=== PATIENT | female | born 1945 | race Caucasian/White ===

== ENCOUNTER → 2017-06-21 | Outpatient (REF) | payer MEDICARE, BC ==
[~2017-06-21] MED LIST: ACET500T68 PO; ALE70 PO; ALP25 PO; ALPR-459 PO; ARGI1POW PO; ASCO250T86 PO; ASP300S PO; ASPI-1441 PO; ASPI-1471 PO; ASPI-715 PO; ASPI81TA94 PO; ATOR20TA22 PO; ATOR40TA24 PO; ATR80PT PO; BET25 PO; BIS10S PR; CALC-1062 PO; CALC-901 PO; CEP500 PO; CEPH-13 PO; CHOL100059 PO; CHOL200021 PO; CRAN1POW PO; CRAN200C5 PO; CRAN450C PO; CRANBERRY; CYCL10TA29 PO; DAR100 PO; DOCU-416 PO; DOCU100T19 PO; FAM20 PO; FESO8PT PO; FESO8TAB3 PO; FISH OIL 1,2001 CAP PO; FISH OIL1 CAP PO; GLUC-255 PO; GLUC1TAB13 PO; GLUC1TAB2 PO; HCTZ25 PO; HYDR-2966 PO; IBU600 PO; LEVO-85 PO; LEVO50TA80 PO; LIS10 PO; LISI-346 PO; LISI30TA46 PO; LISI5TAB25 PO; LOR5 PO; LOR5/325 PO; LOR7.5/325 PO; MERIPEX PO; METH1TAB58 PO; METO-235 PO; METO1TAB PO; MOM PO; MULT-1 PO; MULT-770 PO; MUSCLE RELAXANT; NITR-1 PO; NITR-105 PO; NITR-57 PO; OLME40TA28 PO; OMEP-137 PO; OMEP-153 PO; OMEP40CA48 PO; ONDA8TAB98 PO; OSTEO BIFLEX; OXY10 PO; OXYC-378 PO; OXYC-865 PO; OXYC1TAB54 GT; PAN20 PO; PANT20TA27 PO; PHEN200T32 PO; PHENA200 PO; POLY17PO25 PO; POTA99TA10 PO; POTA99TA13 PO; PRAM0.5T27 PO; RAL60 PO; STOOL SOFTNER PO; TAMS0.4C25 PO; TIZ4 PO; TOLT4CAP13 PO; TRA50 PO; [UNRECOGNIZED DRUG - CODE] NG; [UNRECOGNIZED DRUG - CODE] PO; [UNRECOGNIZED DRUG - CODE] PO
== END ==
LOC: ZZSENDIN 13:17
PROVIDERS: ATTEND Urology
DX: N39.0 Urinary tract infection, site not specified (principal); B95.4 Other streptococcus as the cause of diseases classified elsewhere
CPT/HCPCS: 87077; 87088

== ENCOUNTER → 2017-07-19 | Outpatient (REF) | payer MEDICARE, BC | LOC: ZZSENDIN 17:26 | PROVIDERS: ATTEND Urology | DX: N39.0 Urinary tract infection, site not specified (principal) | CPT/HCPCS: 87088 ==

== ENCOUNTER → 2017-09-08 | Outpatient (CLI) | payer MEDICARE, BC ==
[~2017-09-08] MED LIST changes: +REGADENOSON 0.4 MG/5 ML SYR ONE
--- NOTE | 2017-09-08 14:35 | RT STRESS TEST REPORT ---
[facility] PATIENT NAME: MARGARITA SALDIVAR : [id number] MR: [id number] V: [id number] EXAM DATE: ORDERING PHYSICIAN: RIVERA TINEO TECHNOLOGIST: Elle Acquisition Time: 2017-09-08 14:16:05 Total Exercise Time: 00:01:00 Test Indications: Dyspnea Medications: see nuclear med sheet Protocol: LEXISCAN Max HR: 086 BPM 58% of Pred: 146 BPM Max BP: 154/092 mmHG Max Work Load: 1.0 METS Stress was performed using Lexiscan Protocol. She experienced some mild lightheadedness with the infu steph. This resolved very quickly. No EKG changes were noted. No dysrhythmias were noted. Await Myoview images. Confirmed by GIRMA MANN ([id number]) on 09/08/2017 2:34:50 PM Referred By: Overread By: GIRMA MANN
--- NOTE | 2017-09-09 12:06 | RADIOLOGY IMAGING REPORT ---
FACILITY: [facility] PATIENT NAME: Karla Grady : 1945 MR: [id number] V: [id number] EXAM DATE: ORDERING PHYSICIAN: RIVERA TINEO TECHNOLOGIST: Location: [facility] Patient: Karla Grady : 1945 Visit/Account:[id number] Date of Sevice: 09/08/2017 EXAMINATION: Single isotope SPECT imaging with regadenoson infusion and gated SPECT imaging. DATE OF EXAMINATION: 09/08/17. DATE OF INTERPRETATION: 09/08/17. REQUESTING PHYSICIAN: RIVERA TINEO. INDICATION: The patient is a 72-year-old female evaluated for dyspnea. PROCEDURE: After informed consent the patient received an intravenous injection of 12.3 mCi of Tc-99 m sestamibi followed at an appropriate time interval by rest imaging. The patient then subsequently received an intravenous infusion of 0.4 mg of regadenoson per protocol without complication. Resting heart rate was 72 bpm with a peak heart rate of 83 bpm. Blood pressure at rest was 137 / 76 and fol lowing infusion was 147 / 91. Baseline EKG demonstrates SR. There were no diagnostic EKG changes of ischemia following infusion. Symptoms were nonspecific. The patient then received an intravenous i njection of 29.2 mCi of Tc-99m sestamibi followed by stress imaging. RAW DATA: Examination of the summed raw data revealed a fair quality study. MYOCARDIAL PERFUSION: The tomographic images demonstrate normal perfusion rest & stress. GATED IMAGES: The gated images demonstrate normal regional wall motion and thickening; LVEF 70%. IMPRESSION: 1. Nondiagnostic Lexiscan stress ECG 2. Normal myocardial perfusion scan.` 3. Normal LV systolic function; LVEF 70%. 4. Based on the results of this exam, the patient appears to be at low risk for near term future card iovascular events. Report Dictated By: Adarsh Doyle MD at 09/09/2017 11:58 AM Report E-Signed By: Adarsh Doyle MD at 09/09/2017 12:02 PM WSN:[id number]
== END ==
LOC: RAD 02:04
PROVIDERS: ATTEND Nurse Practitioner Family
DX: R06.00 Dyspnea, unspecified (principal)
CPT/HCPCS: 78452; 93017; A9500; J2785

== ENCOUNTER 2017-11-24 20:15 | Emergency (ER) | payer MEDICARE, BC ==
[~2017-11-24 20:15] MED LIST changes: -ARGI1POW; -GRIS500T PO
--- NOTE | 2017-11-24 20:22 | ER Report ---
History and Physical Time Seen By MD: 20:16 HPI/ROS CHIEF COMPLAINT: Fall HISTORY OF PRESENT ILLNESS: Patient is a 72-year-old female who resides at home with her grandson. Patient states she was attempting get into her walk and toe caught her foot and tripped and fell. She did strike her head on the back of a dresser drawer knob. There is an abrasion to the vertex of the scalp. She is mostly complaining about pain to the right foot lateral aspect as well as right ankle. She has had a prior history of ankle injury with fracture and ORIF. He had no loss of consciousness she denies any headache or neck pain. She denies any numbness or tingling to any of the extremities. She denies chest pain or shortness of breath either prior to during or after the fall. She denies abdominal pain. She denies any acute hip or pelvic pain. She does live at home and ambulates with a 4. walker normally. REVIEW OF SYSTEMS: Constitutional: No fever, no chills. Eyes: No discharge. ENT: No sore throat. Cardiovascular: No chest pain, no palpitations. Respiratory: No cough, no shortness of breath. Gastrointestinal: No abdominal pain, no vomiting. Genitourinary: No hematuria. Musculoskeletal: No back pain. Right foot and ankle pain Skin: No rashes. Neurological: No headache. Allergies: Coded Allergies: morphine (Verified Adverse Reaction, Severe, GI DISTRESS, SEVERE NAUSEA/ VOMITING, 10/12/17) UPDATED 10/12/2017 Sulfa (Sulfonamide Antibiotics) (Verified Adverse Reaction, Intermediate, NAUSEA/VOMITING, 10/12/17) UPDATED 10/12/2017 Home Meds Active Scripts Oxycodone Hcl/Acetaminophen (PERCOCET 5-325 MG TABLET) 1 Each Tablet, 1 EACH PO Q6H for PAIN, #15 TAB 0 Refills Prov:BRODERICK GUTIERREZ MD 11/24/17 Reported Medications Arginine/Ascorbate Sod/Megan AC (Arginaid Powder) 1 Each Powd.pack, PACK 11/24/17 Meloxicam (MELOXICAM) 7.5 Mg Tablet, 7.5 MG PO BID 11/24/17 Griseofulvin,Microsize (GRISEOFULVIN) 500 Mg Tablet, 500 MG PO QDAY 11/24/17 Amlodipine Besylate (AMLODIPINE BESYLATE) 5 Mg Tablet, 2.5 MG PO QDAY, TAB 10/12/17 Sucralfate (SUCRALFATE) 1 Gm Tablet, 1 GM PO PRN 10/12/17 Ondansetron (ZOFRAN ODT) 4 Mg Tab.rapdis, 1 TAB PO PRN for NAUSEA, TAB.NAZIA 10/12/17 Mirabegron (MYRBETRIQ) 50 Mg Tab.er.24h, 1 TAB PO QDAY 10/12/17 Tramadol Hcl (TRAMADOL HCL) 50 Mg Tablet, 1 TAB PO Q6H for PAIN, TAB 10/12/17 Denosumab (PROLIA) 60 Mg/1 Ml Injs, 1 DIS.SYR SUBQ [id number] 10/12/17 Calcium Carbonate (CALCIUM) 500 Mg Tablet, 1 TAB PO QDAY 10/12/17 Cranberry Extract (CRANBERRY) 200 Mg Capsule, 2 TAB PO QDAY, CAPSULE 10/12/17 Olmesartan Medoxomil (Olmesartan Medoxomil) 40 Mg Tablet, 1 TAB PEG QDAY 10/12/17 Levothyroxine Sodium (LEVOTHYROXINE SODIUM) 75 Mcg Tablet, 1 TAB PO QDAY, TAB 10/12/17 Fesoterodine Fumarate (TOVIAZ) 4 Mg Tabsr, 1 TAB PO QDAY 10/12/17 Docusate Sodium (Colace Clear) 50 Mg Capsule, 2 CAP PO QAY 10/12/17 Cholecalciferol (Vitamin D3) (VITAMIN D) 10,000 Unit Capsule, 1 CAP PO QAY, CAPSULE 10/12/17 Atorvastatin Calcium (ATORVASTATIN CALCIUM) 40 Mg Tablet, 1 TAB PO QDAY, TAB 10/12/17 Ascorbic Acid (VITAMIN C) Unknown Strength Tablet, PO DAILY 06/26/15 Alprazolam (ALPRAZOLAM) 0.25 Mg Tab.rapdis, 1 TAB PO PRN, #3 TAB 06/26/15 Pramipexole Di-Hcl (MIRAPEX) 0.5 Mg Tablet, 1 TAB PO QDAY 07/24/13 Metoprolol/Hydrochlorothiazide (METOPROLOL-HCTZ 100-25 MG TAB) 1 Each Tablet, 1 TAB PO DAILY 07/24/13 Multivit,Ther Iron,Ca,Fa & Min (THERA-M CAPLET) 1 Each Tablet, 1 CAP PO QDAY 07/24/13 Aspirin (ASPIR 81) 81 Mg Tablet.dr, 1 TAB PO QAM, TAB 07/24/13 Discontinued Reported Medications Meloxicam (MELOXICAM) 7.5 Mg Tablet, 1 TAB PO QDAY 10/12/17 Arginine/Ascorbate Sod/Megan AC (Arginaid Powder) 1 Each Powd.pack, 2-3 PACK PO QWEEK 06/26/15 Past Medical/Surgical History Past medical history for stroke in 1974. History of glaucoma left eye. History of hyperlipidemia, and hypertension. History of right ankle fracture 2000, history of right femur fracture 2013. History of osteoarthritis to her left knee , left shoulder and left spine. History of hypothyroidism. History of cholecystectomy, history of bladder surgery history of total left shoulder in 2013 Hx Smoking: No Smoking Status: Never Smoker Exposure to Second Hand Smoke?: No Hx Substance Use Disorder: No Hx Alcohol Use: No Constitutional Vital Sign - Last 24 Hours 11/24/17 11/24/17 11/24/17 11/24/17 20:16 20:17 20:30 21:30 Temp 97.7 Pulse 80 75 80 Resp 16 15 19 B/P (MAP) 131/77 131/77 (95) 148/75 (99) 147/71 (96) Pulse Ox 93 O2 Delivery Room Air 11/24/17 11/24/17 11/24/17 21:45 22:00 22:22 Pulse 70 77 84 Resp 24 28 16 B/P (MAP) 143/69 (93) 150/79 (102) Pulse Ox 89 94 O2 Delivery Room Air Physical Exam General/Constitutional: Patient is awake, alert, nontoxic and in no acute respiratory distress. Elevated body mass index Head: Patient has a primary 3 inch abrasion to the vertex of the scalp there is approximately an area of 0.5 cm that is somewhat open and will require primary repair. Eyes: Conjunctival clear, Pupils are equal and reactive to light. Extraocular muscles are intact and symmetrical. Sclera are clear and anicteric. The patient has left eyelid( Ears:External canals are clear. Tympanic membranes are clear with normal landmarks and light reflex. No hemotympanum Nares: No rhinorrhea or bleeding. Turbinates are pink and moist. Oropharyngeal: Mucous membranes are moist. There is no pharyngeal erythema or exudate. There are no palatal petechiae. Uvula is midline and symmetrical. Neck: Supple, no adenopathy. No midline C-spine tenderness. Cardiovascular: Heart is regular rate and rhythm without audible murmurs, rubs or gallops. Pulmonary: Lungs are clear to auscultation bilaterally. There are no wheezes, rales, or rhonchi. Chest rise is symmetrical Abdomen: Soft, nontender, no guarding or peritoneal signs. Extremities: No gross deformities, No peripheral cyanosis. Able to move all 4 extremities. Patient with tenderness to the lateral aspect of the right foot and right ankle. Neuro: Alert and oriented X3, Cranial nerves 2 thru 12 are intact and symmetrical. Skin: No rashes, skin is warm dry and well perfused. Medical Decision Making EKG/Imaging Imaging FACILITY: [facility] PATIENT NAME: Karla Grady : 1945 MR: [id number] V: [id number] EXAM DATE: ORDERING PHYSICIAN: BRODERICK GUTIERREZ TECHNOLOGIST: Location: [facility] Patient: Karla Grady : 1945 Visit/Account:[id number] Date of Sevice: 11/24/2017 EXAMINATION: CT Head Without Contrast 11/24/2017 8:22 PM HISTORY: Trauma. Fell in shower. Cut on back of head. TECHNIQUE: Contiguous axial images were obtained from the skull base to the vertex without intravenous contrast. One of the following dose optimization techniques was utilized in the performance of this exam: Automated exposure control; adjustment of the mA and/ or kV according to the patient's size; or use of an iterative reconstruction technique. Specific details can be referenced in the facility's radiology CT exam operational policy. COMPARISON STUDIES: none. FINDINGS: Ventricles / sulci / fissures: negative Masses / hemorrhage / midline shift: negative White matter: Minimal white matter hypodensities, well within normal range for age. Patel-white differentiation: negative Extra-axial spaces: negative Dural venous sinuses / arterial structures: negative Skull base / calvarium: No acute bony injury. Soft tissue injury to the right of midline over the parietal occipital scalp. No foreign body. Visualized mastoid air cells / paranasal sinuses: negative IMPRESSION: 1. Scalp injury to the right of midline in the parietal occipital area. No skull fracture or acute intracranial injury evident. 2. Age-appropriate intracranial appearance. No evidence of mass, stroke, or hemorrhage. Report Dictated By: Kunal Patiño MD at 11/24/2017 9:12 PM Report E-Signed By: Kunal Patiño MD at 11/24/2017 9:18 PM WSN:[id number] FACILITY: [facility] PATIENT NAME: Karla Grady : 1945 MR: [id number] V: [id number] EXAM DATE: ORDERING PHYSICIAN: BRODERICK GUTIERREZ TECHNOLOGIST: Location: [facility] Patient: Karla Grady : 1945 Visit/Account:[id number] Date of Sevice: 11/24/2017 EXAMINATION: Right knee, 3 views 11/24/2017 8:55 PM HISTORY: trauma COMPARISON: None FINDINGS: Intramedullary xiao with distal screws from previous femoral ORIF. No loosening or disruption of the visualized metallic fixation. Osteoarthritic changes with tricompartmental spurring and more prominent lateral femorotibial joint space narrowing. Small suprapatellar effusion. No acute bony injury. IMPRESSION: 1. No acute bony injury. 2. Moderate osteoarthritis. Small effusion. Report Dictated By: Kunal Patiño MD at 11/24/2017 9:37 PM Report E-Signed By: Kunal Patiño MD at 11/24/2017 9:39 PM WSN:[id number] FACILITY: [facility] PATIENT NAME: Karla Grady : 1945 MR: [id number] V: [id number] EXAM DATE: ORDERING PHYSICIAN: BRODERICK GUTIERREZ TECHNOLOGIST: Location: [facility] Patient: Karla Grady : 1945 Visit/Account:[id number] Date of Sevice: 11/24/2017 EXAMINATION: Right ankle, 3 views Right foot, 3 views 11/24/2017 8:22 PM HISTORY: trauma COMPARISON: Right ankle 09/13/2009 FINDINGS: Osteopenia. Stable chronic ossification center at the tip of the medial malleolus. No acute bony fracture is evident. Stable chronic dorsal spurring in the distal talus. Partially displaced and mildly delayed fractures of the neck of the third metatarsal with milder nondisplaced fracture in the neck of the second. MTP articulations are not disrupted. No other acute bony injury. IMPRESSION: 1. Fractures through the necks of the right second and third metatarsals. 2. No acute bony injury in the ankle. Report Dictated By: Kunal Patiño MD at 11/24/2017 9:34 PM Report E-Signed By: Kunal Patiño MD at 11/24/2017 9:37 PM WSN:[id number] FACILITY: [facility] PATIENT NAME: Karla Grady : 1945 MR: [id number] V: [id number] EXAM DATE: ORDERING PHYSICIAN: BRODERICK GUTIERREZ TECHNOLOGIST: Location: [facility] Patient: Karla Grady : 1945 Visit/Account:[id number] Date of Sevice: 11/24/2017 EXAMINATION: Right ankle, 3 views Right foot, 3 views 11/24/2017 8:22 PM HISTORY: trauma COMPARISON: Right ankle 09/13/2009 FINDINGS: Osteopenia. Stable chronic ossification center at the tip of the medial malleolus. No acute bony fracture is evident. Stable chronic dorsal spurring in the distal talus. Partially displaced and mildly delayed fractures of the neck of the third metatarsal with milder nondisplaced fracture in the neck of the second. MTP articulations are not disrupted. No other acute bony injury. IMPRESSION: 1. Fractures through the necks of the right second and third metatarsals. 2. No acute bony injury in the ankle. Report Dictated By: Kunal Patiño MD at 11/24/2017 9:34 PM Report E-Signed By: Kunal Patiño MD at 11/24/2017 9:37 PM WSN:[id number] ED Course/Re-evaluation ED Course 11/24/2017 8:31:11 pm when at this time will be to perform CT scan of the head given the head injury. We'll also x-ray of the right ankle and right foot. We' ll update the patient's tetanus status. We will also perform primary. The laceration to the scalp. Procedure: Laceration repair. Verbal consent was obtained from the patient. The 1 cm laceration on the scalp was anesthetized in the usual fashion. The wound was cleansed, draped and explored to its base with a gloved finger. There were no deep structures involved. The wound was repaired with 2 joanie. The wound repair was simple. The procedure was performed by myself. Decision to Disposition Date: Nov 24, 2017 Decision to Disposition Time: 21:55 Depart Departure Latest Vital Signs Vital Signs Date Time Temp Pulse Resp B/P (MAP) Pulse Ox O2 Delivery O2 Flow Rate FiO2 11/24/17 22:22 84 16 150/79 (102) 94 Room Air 11/24/17 20:16 97.7 Impression: Primary Impression: Fracture of foot Condition: Improved Disposition: HOME OR SELF-CARE Referrals: LUGII GARCÍA MD (PCP) 2 Days GURJIT FRANCIS MD Call to schedule a follow-up appointment for reevaluation of your foot fracture within 7 days New Scripts Oxycodone Hcl/Acetaminophen (PERCOCET 5-325 MG TABLET) 1 Each Tablet 1 EACH PO Q6H for PAIN, #15 TAB 0 Refills Prov: BRODERICK GUTIERREZ MD 11/24/17 Patient Instructions: Foot Fracture in Adults (DC) Additional Instructions: Follow-up with [facility] in the next 7 days for evaluation of your foot fracture Wear your cast shoe while ambulating until evaluated by orthopedics. Problem Qualifiers Primary Impression: Fracture of foot Encounter type: initial encounter Fracture type: closed Laterality: right Qualified Codes: S92.901A - Unspecified fracture of right foot, initial encounter for closed fracture BRODERICK GUTIERREZ MD Nov 24, 2017 20:22
[2017-11-24] MEDS ORDERED: GRIS500T PO (20:25)
[2017-11-24] MEDS ORDERED: DIPHTH/TETANUS/ACEL. PERTUSSIS IM ONLY ONE (20:25)
[2017-11-24] MEDS ORDERED: TETRACAIN/EPI/LIDO GEL 3ML SYR TP ONE (20:25)
--- NOTE | 2017-11-24 21:22 | RADIOLOGY IMAGING REPORT ---
FACILITY: [facility] [place] PATIENT NAME: Karla Grady : 1945 MR: [id number] V: [id number] EXAM DATE: ORDERING PHYSICIAN: BRODERICK GUTIERREZ TECHNOLOGIST: Location: Patient: Karla Grady : 1945 Visit/Account:[id number] Date of Sevice: 11/24/2017 EXAMINATION: CT Head Without Contrast 11/24/2017 8:22 PM HISTORY: Trauma. Fell in shower. Cut on back of head. TECHNIQUE: Contiguous axial images were obtained from the skull base to the vertex without intraven ous contrast. One of the following dose optimization techniques was utilized in the performance of this exam: Autom ated exposure control; adjustment of the mA and/or kV according to the patient's size; or use of an i terative reconstruction technique. Specific details can be referenced in the facility's radiology C T exam operational policy. COMPARISON STUDIES: none. FINDINGS: Ventricles / sulci / fissures: negative Masses / hemorrhage / midline shift: negative White matter: Minimal white matter hypodensities, well within normal range for age. Patel-white differentiation: negative Extra-axial spaces: negative Dural venous sinuses / arterial structures: negative Skull base / calvarium: No acute bony injury. Soft tissue injury to the right of midline over the par ietal occipital scalp. No foreign body. Visualized mastoid air cells / paranasal sinuses: negative IMPRESSION: 1. Scalp injury to the right of midline in the parietal occipital area. No skull fracture or acute in tracranial injury evident. 2. Age-appropriate intracranial appearance. No evidence of mass, stroke, or hemorrhage. Report Dictated By: Kunal Patiño MD at 11/24/2017 9:12 PM Report E-Signed By: Kunal Patiño MD at 11/24/2017 9:18 PM WSN:[id number]
[2017-11-24] MEDS ORDERED: MELO-205 PO (21:37)
[2017-11-24] MEDS ORDERED: ARGI1POW (21:37)
--- NOTE | 2017-11-24 21:41 | RADIOLOGY IMAGING REPORT ---
[place] [facility] [place]IENT NAME: Karla Grady : 1945 MR: [id number] V: [id number] EXAM DATE: ORDERING PHYSICIAN: BRODERICK GUTIERREZ TECHNOLOGIST: Location: [facility] [place] Patient: Karla Grady : 1945 Visit/Account:[id number] Date of Sevice: 11/24/2017 EXAMINATION: Right ankle, 3 views Right foot, 3 views 11/24/2017 8:22 PM HISTORY: trauma COMPARISON: Right ankle 09/13/2009 FINDINGS: Osteopenia. Stable chronic ossification center at the tip of the medial malleolus. No acute bony fracture is evident. Stable chronic dorsal spurring in the distal talus. Partially displaced an d mildly delayed fractures of the neck of the third metatarsal with milder nondisplaced fracture in t he neck of the second. MTP articulations are not disrupted. No other acute bony injury. IMPRESSION: 1. Fractures through the necks of the right second and third metatarsals. 2. No acute bony injury in the ankle. Report Dictated By: Kunal Patiño MD at 11/24/2017 9:34 PM Report E-Signed By: Kunal Patiño MD at 11/24/2017 9:37 PM WSN:[id number]
--- NOTE | 2017-11-24 21:42 | RADIOLOGY IMAGING REPORT ---
FACILITY: [facility] [place] PATIENT NAME: Karla Grady : 1945 MR: [id number] V: [id number] EXAM DATE: ORDERING PHYSICIAN: BRODERICK GUTIERREZ TECHNOLOGIST: [place] [facility] [place]: Karla Grady : 1945 Visit/Account:[id number] Date of Sevice: 11/24/2017 EXAMINATION: Right ankle, 3 views Right foot, 3 views 11/24/2017 8:22 PM HISTORY: trauma COMPARISON: Right ankle 09/13/2009 FINDINGS: Osteopenia. Stable chronic ossification center at the tip of the medial malleolus. No acute bony fracture is evident. Stable chronic dorsal spurring in the distal talus. Partially displaced an d mildly delayed fractures of the neck of the third metatarsal with milder nondisplaced fracture in t he neck of the second. MTP articulations are not disrupted. No other acute bony injury. IMPRESSION: 1. Fractures through the necks of the right second and third metatarsals. 2. No acute bony injury in the ankle. Report Dictated By: Kunal Patiño MD at 11/24/2017 9:34 PM Report E-Signed By: Kunal Patiño MD at 11/24/2017 9:37 PM WSN:[id number]
--- NOTE | 2017-11-24 21:43 | RADIOLOGY IMAGING REPORT ---
FACILITY: [facility] [place] PATIENT NAME: Karla Grady : 1945 MR: [id number] V: [id number] EXAM DATE: ORDERING PHYSICIAN: BRODERICK GUTIERREZ [place]CHN[place]IST: [place] [facility] [place] : 1945 Visit/Account:[id number] Date of Sevice: 11/24/2017 EXAMINATION: Right knee, 3 views 11/24/2017 8:55 PM HISTORY: trauma COMPARISON: None FINDINGS: Intramedullary xiao with distal screws from previous femoral ORIF. No loosening or disrupti on of the visualized metallic fixation. Osteoarthritic changes with tricompartmental spurring and mor e prominent lateral femorotibial joint space narrowing. Small suprapatellar effusion. No acute bony i njury. IMPRESSION: 1. No acute bony injury. 2. Moderate osteoarthritis. Small effusion. Report Dictated By: Kunal Patiño MD at 11/24/2017 9:37 PM Report E-Signed By: Kunal Patiño MD at 11/24/2017 9:39 PM WSN:[id number]
[2017-11-24] MEDS ORDERED: OXYC-865 PO (21:53)
[2017-11-24] MEDS ORDERED: oxyCODONE/ACETAMIN 5/325MG TH 2 TAB/BOTTLE PO ONE (21:55)
[2017-11-24 22:22] VITALS: BP 150/79
== END 2017-11-24 22:31 | disposition home or self-care (01) ==
LOC: ER 20:29
DX: S92.321A Displaced fracture of second metatarsal bone, right foot, initial encounter for closed fracture (principal); S92.331A Displaced fracture of third metatarsal bone, right foot, initial encounter for closed fracture; S01.01XA Laceration without foreign body of scalp, initial encounter; W01.10XA Fall on same level from slipping, tripping and stumbling with subsequent striking against unspecified object, initial encounter
CPT/HCPCS: 12001; 70450; 73562; 73610; 73630; 90471; 90715; 99284; A9270

== ENCOUNTER → 2017-11-24 | Outpatient (CLI) | payer MEDICARE, BC ==
[~2017-11-24] MED LIST changes: +AMLO-96 PO; +ARGI1POW; +ATOR40TA69 PO; +CALC500T6 PO; +CHOL100062 PO; +DEN60I SUBQ; +DOCU50CA11 PO; +FES4PT PO; +GRIS500T PO; +LEVO75TA73 PO; +MELO-205 PO; +MIRA50TA PO; +OLME40TA3 PEG; +ONDA4TAB PO; -REGADENOSON 0.4 MG/5 ML SYR ONE; +SUCR1TAB51 PO; +TRAM-420 PO
== END ==
LOC: AMB 19:42
PROVIDERS: ATTEND Nurse Practitioner
DX: M79.671 Pain in right foot (principal); S00.01XA Abrasion of scalp, initial encounter; W01.190A Fall on same level from slipping, tripping and stumbling with subsequent striking against furniture, initial encounter
CPT/HCPCS: A0425; A0429

== ENCOUNTER → 2017-11-24 | Outpatient (CLI) | payer MEDICARE, BC | LOC: AMB 22:24 | PROVIDERS: ATTEND Nurse Practitioner | DX: S92.901A Unspecified fracture of right foot, initial encounter for closed fracture (principal) | CPT/HCPCS: A0425; A0428 ==

== ENCOUNTER → 2018-01-23 | Outpatient (CLI) | payer MEDICARE, BC ==
[~2018-01-23] MED LIST changes: +ARGI1POW; +GRIS500T PO
== END ==
LOC: LAB 14:42
PROVIDERS: ATTEND Urology
DX: N39.0 Urinary tract infection, site not specified (principal)
CPT/HCPCS: 81001; 87088

== ENCOUNTER → 2018-03-06 | Outpatient (REF) | payer MEDICARE, BC ==
[~2018-03-06] MED LIST changes: +AMLO-111 PO; -AMLO-96 PO
== END ==
LOC: ZZSENDIN 16:18
PROVIDERS: ATTEND Urology
DX: N39.0 Urinary tract infection, site not specified (principal)
CPT/HCPCS: 81001; 87088

== ENCOUNTER → 2018-03-09 | Outpatient (CLI) | payer MEDICARE, BC ==
--- NOTE | 2018-03-09 11:21 | EKG ---
FACILITY: [facility] [place] PATIENT NAME: MARGARITA SALDIVAR : [id number] MR: [id number] V: [id number] EXAM DATE: ORDERING PHYSICIAN: RANDOLPH DECKER TECHNOLOGIST: Test Reason : Blood Pressure : / mmHG Vent. Rate : 057 BPM Atrial Rate : 057 BPM P-R Int : 150 ms QRS Dur : 086 ms QT Int : 446 ms P-R-T Axes : 040 -01 036 degrees QTc Int : 434 ms Sinus bradycardia with occasional premature ventricular complexes Otherwise normal ECG Compared to previous it is relatively unchanged, but the PVC's are new. Confirmed by ERIN HALL ([id number]) on 03/09/2018 6:56:48 PM Referred By: Confirmed By:ERIN HALL
--- NOTE | 2018-03-09 11:49 | RADIOLOGY IMAGING REPORT ---
[place] [facility] [place] NAME: Karla Grady : 1945 MR: [id number] V: [id number] EXAM DATE: ORDERING PHYSICIAN: RANDOLPH DECKER TECHNOLOGIST: Location: Patient: Karla Grady : 1945 Visit/Account:[id number] Date of Sevice: 03/09/2018 Exam type: CHEST PA AND LAT History: Shortness of breath x2 weeks Comparison: February 04, 2016. Findings: Patient is markedly rotated towards the right. The lungs are free of acute effusions infiltrates or edema. There is no evidence of a pneumothorax or pneumomediastinum. The cardiac silhouette is enlar ged and there is moderate ectasia the thoracic aorta appearing similar to the prior study. There are moderate spondylotic changes of thoracic spine and left shoulder arthroplasty. Degenerative changes the right shoulder also noted IMPRESSION: 1. No acute cardiopulmonary process is seen Report Dictated By: Vickie Eaton MD at 03/09/2018 11:44 AM Report E-Signed By: Vickie Eaton MD at 03/09/2018 11:45 AM WSN:[id number]
== END ==
LOC: RAD 10:46
PROVIDERS: ATTEND Nurse Practitioner Family
DX: E03.9 Hypothyroidism, unspecified (principal); R00.1 Bradycardia, unspecified; I49.9 Cardiac arrhythmia, unspecified; E87.1 Hypo-osmolality and hyponatremia; I10 Essential (primary) hypertension; R68.89 Other general symptoms and signs; R06.00 Dyspnea, unspecified; E55.9 Vitamin D deficiency, unspecified
CPT/HCPCS: 36415; 71046; 82040; 82247; 82310; 82374; 82435; 82565; 82607; 82728; 82947; 84075; 84132; 84155; 84295; 84443; 84450; 84460; 84484; 84520; 85027; 93005

== ENCOUNTER → 2018-03-12 | Outpatient (CLI) | payer MEDICARE, BC | LOC: US 04:17 | PROVIDERS: ATTEND Nurse Practitioner Family | DX: I51.7 Cardiomegaly (principal) | CPT/HCPCS: 93306 ==

== ENCOUNTER → 2018-05-08 | Outpatient (CLI) | payer MEDICARE, BC ==
[~2018-05-08] MED LIST changes: +CYAN250013
--- NOTE | 2018-05-08 15:11 | RADIOLOGY IMAGING REPORT ---
FACILITY: [facility] [place] PATIENT NAME: Karla Grady : 1945 MR: [id number] V: [id number] EXAM DATE: ORDERING PHYSICIAN: RANDOLPH DECKER TECHNOLOGIST: Location: [facility] [place] Patient: Karla Grady : 1945 Visit/Account:[id number] Date of Sevice: 05/08/2018 DEXA Scan Clinical history: Osteoporosis, postmenopausal. Comparison: DEXA scan from 08/26/2015. LUMBAR SPINE: The bone mineral density (BMD) measured from L1-L4 correlates with a Z-score of 0.8 and a T-score of 0.2 which is Normal as defined by the World Health Organization. The corresponding risk of fracture in the lumbar spine is Not increased compared with a young adult reference population. This value mena s increase by 9.2 % since the prior study. More than 5% change is considered significant. HIP: Bone mineral density (BMD) measured in the LEFT total hip region correlates with a Z-score by 0.9 and a T-score of -1.8 which is osteopenia as defined by the World Health Organization. The correspondin g risk of fracture in the hip is 3-4 times increased compared to a young adult reference population. This value has decrease by 0.9 % since the prior study. More than 5% change is considered significan t. T score left femoral neck -1.7 Bone mineral density (BMD) measured in the Femoral Neck region measures 0.803 g/cm?. IMPRESSION: 1. Lumbar spine: Normal. There has been 9.2% increase in the bone mineral density since the previou s exam. 2. Left Total Hip: Osteopenia. There has been 0.9% decrease in the bone mineral density since the p revious exam. 3. Femoral Neck: Bone Mineral Density is 0.803 g/cm? The next DEXA scan of this patient should include the following sites: L1-L4 and the left hip. FRAX? WHO Fracture Risk Assessment Tool link: <http://www.shef.ac.uk/FRAX/tool.jsp?locationValue=9> PLEASE NOTE: 1) The World Health Organization defines low BMD as follows: T-score Normal > -1 Osteopenia < -1 and > -2.5 Osteoporosis < -2.5 without fractures Established osteoporosis < -2.5 with fractures 2) In general, you may wish to consider: Diagnosis Treatment Follow-up DEXA Normal BMD Prevention 2-3 years Osteopenia Prevention/therapy 1-2 years Osteoporosis Therapy Yearly 3) Fracture risk estimated from the T-score is more accurate for vertebral fractures (often spontane ous) than for hip fractures. Report Dictated By: Vickie Eaton MD at 05/08/2018 3:05 PM Report E-Signed By: Vickie Eaton MD at 05/08/2018 3:07 PM WSN:[email or web address]
== END ==
LOC: RAD 05-07 02:13
PROVIDERS: ATTEND Nurse Practitioner Family
DX: M85.80 Other specified disorders of bone density and structure, unspecified site (principal); N95.8 Other specified menopausal and perimenopausal disorders
CPT/HCPCS: 77080

== ENCOUNTER → 2018-10-29 | Outpatient (CLI) | payer MEDICARE, BC ==
[~2018-10-29] MED LIST changes: -AMLO-111 PO; +AMLO-125 PO
--- NOTE | 2018-10-29 10:34 | EKG ---
FACILITY: [facility] PATIENT NAME: MARGARITA SALDIVAR : [id number] MR: [id number] V: [id number] EXAM DATE: ORDERING PHYSICIAN: RIVERA TINEO TECHNOLOGIST: Test Reason : IRREGULAR heart beat Blood Pressure : / mmHG Vent. Rate : 070 BPM Atrial Rate : 070 BPM P-R Int : 144 ms QRS Dur : 082 ms QT Int : 416 ms P-R-T Axes : 042 005 038 degrees QTc Int : 449 ms Sinus rhythm Borderline left axis No acute appearing findings Confirmed by GIRMA MANN ([id number] on 10/29/2018 11:29:34 AM Referred By: RIVKA Confirmed By:GIRMA MANN
== END ==
LOC: RESP 10:21
PROVIDERS: ATTEND Nurse Practitioner Family
DX: I49.9 Cardiac arrhythmia, unspecified (principal)
CPT/HCPCS: 93005